=== PATIENT | female | born 1985 | race Two or more races ===

== ENCOUNTER → 2025-01-03 | Outpatient (CLI) | payer MEDICAID, SELFPAY ==
[2025-01-02 11:13] LABS: HCG Qualitative,Urine Negative
--- NOTE | 2025-01-03 13:45 | XR_ITS ---
Examination: MRI orbits face neck, without intravenous contrast. MRI of orbits face neck , with intravenous contrast. Exam date and time: January 03, 2025 1447 hours INDICATIONS: Right parotid mass, palpable mass behind the right ear 9 years Technique: Multiple axial, sagittal and coronal images of the orbits face neck have been obtained with the Siemens high-resolution 1.5 Sarah MRI scanner. Images obtained included T2 weighted fat suppressed sagittal sections, TR 3500, TE 46, T2 weighted coronal fat suppressed images, TR 3050, TE 84, T2-weighted transverse fat suppressed images, TR 30-60, TE 63, proton density transverse images, TR 4720, TE 46, and T1 weighted coronal images, TR 560, TE 13. Axial, sagittal and coronal images are obtained post intravenous injection 12 cc gadolinium. Findings: Significant left maxillary sinus disease Symmetrical nasopharynx oropharynx Solid nodule 15 x 16 mm in the right parotid gland, partially circumscribed on the precontrast images Postcontrast images demonstrate diffuse enhancement of this mass as well as enhancement involving the skin and subcutaneous area adjacent to the mass No pathologic carotid triangle lymphadenopathy Normal epiglottis No prevertebral soft tissue prominence IMPRESSION: Enhancing 15 x 16 mm solid mass right parotid gland, differential would include primary parotid gland tumor, metastatic tumor, lymphoma, Hodgkin's disease This nodule is amenable to CT-guided percutaneous biopsy for diagnosis as clinically warranted
== END | disposition home or self-care (01) ==
LOC: SMRI 13:32
PROVIDERS: PCP Family Medicine
DX: I89.8 Other specified noninfective disorders of lymphatic vessels and lymph nodes (principal); Z32.00 Encounter for pregnancy test, result unknown
CPT/HCPCS: 70543; 81025; A9579